=== PATIENT | female | born 1945 | race Caucasian/White ===

== ENCOUNTER 2017-03-21 23:10 | Inpatient (IN) | payer OTHER ==
[~2017-03-21] VITALS: Ht 165.1 cm; Wt 87.0 kg
[~2017-03-21 23:10] MED LIST: ANTIVERT25 MG PO; ASPIRIN325 MG PO; CARVEDILOL12.5 MG PO; JANUVIA25 MG PO; LISINOPRIL5 MG PO; SIMVASTATIN40 MG PO; ZOFRAN4 MG PO
[2017-03-22 00:13] LABS: HEMATOCRIT 38.3 % (36.0-46.0); MCH 30.6 PG (29.0-34.0); MCHC 34.7 G/DL (30.0-36.0); MCV 88.2 FL (83-99); MEAN PLAT.VOLUME 10.7 uM^3 (9.5-12.4); PLATELET COUNT 307 K/uL (156-360); RBC DIS.WIDTH-CV 13.8 % (11.8-14.6); RBC DIS.WIDTH-SD 44.8 % (39-53); RED BLOOD COUNT 4.34 M/uL (3.80-5.20); WHITE BLOOD COUNT 9.6 K/uL (4.1-10.2)
[2017-03-22 00:25] LABS: CHLORIDE 102 mEq/L (99-109); POTASSIUM 4.2 mEq/L (3.7-5.4); SODIUM 136 mEq/L (136-147)
[2017-03-22 00:27] LABS: GLUCOSE 295 mg/dL (70-99)
[2017-03-22 00:28] LABS: ANION GAP 13 MEQ/L (2-14)
[2017-03-22 00:30] LABS: GFR ESTIMATE (CALCULATED) > 59 mL/min/
[2017-03-22 00:31] LABS: UREA NITROGEN (BUN) 12 mg/dL (9-23)
[2017-03-22 00:33] LABS: TROP-I INTERPRETATION NEGATIVE; TROPONIN-I 0.02 ng/mL (0.0-0.30)
[2017-03-22 00:40] LABS: POINT-OF-CARE METER ID UU14100415
[2017-03-22 03:22] LABS: POINT-OF-CARE METER ID UU14100415
[2017-03-22 03:53] VITALS: BP 172/79
[2017-03-22 05:45] LABS: TROP-I INTERPRETATION INDETERMINATE; TROPONIN-I 0.41 ng/mL (0.0-0.30)
[2017-03-22 05:49] LABS: HDL CHOLESTEROL 37 MG/DL (Desirable>=50); LDL CHOLESTEROL 99 mg/dL (Desirable<100); NON-HDL CHOLESTEROL 118 mg/dL (Desirable<160); TOTAL CHOLESTEROL 155 mg/dL (Desirable<200); TRIGLYCERIDES 97 MG/DL (Normal: <150)
[2017-03-22 07:05] LABS: POINT-OF-CARE METER ID UU13113700
[2017-03-22 08:22] LABS: Estimated Average Glucose 194 mg/dL (70-123); HEMOGLOBIN A1c (GLYCOHEMOGLOB) 8.4 % HGB (Below 5.7)
[2017-03-22 08:33] VITALS: BP 180/83
[2017-03-22 11:00] VITALS: BP 155/70
[2017-03-22 12:44] LABS: POINT-OF-CARE METER ID UU14162513
[2017-03-22 13:09] LABS: INTER. NORMALIZED RATIO 1.1; PROTHROMBIN TIME 12.1 SEC (10.2-12.9)
[2017-03-22 13:12] LABS: PTT 38.4 SEC (25-37)
[2017-03-22 13:19] LABS: TROP-I INTERPRETATION POSITIVE; TROPONIN-I 3.52 ng/mL (0.0-0.30)
[2017-03-22 14:55] LABS: POINT-OF-CARE METER ID UU13113696
[2017-03-22 17:46] LABS: POINT-OF-CARE METER ID UU13113819
[2017-03-22 20:23] VITALS: BP 132/62
[2017-03-22 21:09] LABS: POINT-OF-CARE METER ID UU13113781
[2017-03-22 23:34] VITALS: BP 125/58
[2017-03-23 04:40] VITALS: BP 122/62
[2017-03-23 06:14] LABS: ANION GAP 9 MEQ/L (2-14); CHLORIDE 106 MEQ/L (99-109); GFR ESTIMATE (CALCULATED) > 59 mL/min/; GLUCOSE 177 mg/dL (70-99); POTASSIUM 3.9 MEQ/L (3.7-5.4); SAMPLE HEMOLYSIS CHECK 0; SAMPLE ICTERIC CHECK 0; SAMPLE LIPEMIA CHECK 0; SODIUM 138 MEQ/L (136-147); UREA NITROGEN (BUN) 10 mg/dL (9-23)
[2017-03-23 09:05] VITALS: BP 136/71
[2017-03-23] MEDS ORDERED: CARVEDILOL12.5 MG PO (12:42)
[2017-03-23] MEDS ORDERED: LISINOPRIL5 MG PO (12:42)
[2017-03-23] MEDS ORDERED: JANUVIA25 MG PO (12:42)
[2017-03-23] MEDS ORDERED: AMLODIPINE BESYL5 MG PO (12:42)
[2017-03-23] MEDS ORDERED: LOVASTATIN20 MG PO (12:43)
[2017-03-23] MEDS ORDERED: NITROGLYCERIN0.4 MG SL (13:33)
== END 2017-03-23 15:23 | disposition home or self-care (01) | DRG 281 ==
LOC: EME 23:10 → 5WEST 03-22 01:14 → EDOF 03-22 01:14 → ENRESERV 03-22 01:15 → 5WEST 03-22 03:31 → ENRESERV 03-22 14:33 → 5WEST 03-22 14:33 → 4EAST 03-22 15:12 → 5WEST 03-22 15:12 → ENRESERV 03-22 15:15 → 4EAST 03-22 19:36 → ENPENDDIS 03-23 → 4EAST 03-23 15:23
PROVIDERS: Emergency Medicine; Internal Medicine; Internal Medicine Cardiovascular Disease; Physician Assistant Medical; Student in an Organized Health Care Education/Training Program
DX: I21.4 Non-ST elevation (NSTEMI) myocardial infarction (principal); I25.110 Atherosclerotic heart disease of native coronary artery with unstable angina pectoris; I25.82 Chronic total occlusion of coronary artery; I11.0 Hypertensive heart disease with heart failure; I50.30 Unspecified diastolic (congestive) heart failure; E11.65 Type 2 diabetes mellitus with hyperglycemia; E78.1 Pure hyperglyceridemia; E78.5 Hyperlipidemia, unspecified; F32.9 Major depressive disorder, single episode, unspecified; F41.9 Anxiety disorder, unspecified; G43.909 Migraine, unspecified, not intractable, without status migrainosus; H81.10 Benign paroxysmal vertigo, unspecified ear; E66.9 Obesity, unspecified; Z68.30 Body mass index [BMI] 30.0-30.9, adult; Z87.891 Personal history of nicotine dependence; Z79.82 Long term (current) use of aspirin; Z79.84 Long term (current) use of oral hypoglycemic drugs; Z82.49 Family history of ischemic heart disease and other diseases of the circulatory system; Z91.14 Patient's other noncompliance with medication regimen; Z95.5 Presence of coronary angioplasty implant and graft; Z95.1 Presence of aortocoronary bypass graft
CPT/HCPCS: 70450; 70551; 71020; 80048; 80061; 82948; 83036; 83880; 84484; 85027; 85610; 85730; 93005; 93306; 93880; 99281; 99285; C1750; C1760; C1769; C1887; C1894; J0360; J1650; J1815; J2250; J3010; J7030; J7040

== ENCOUNTER 2017-09-01 08:04 | Emergency (ER) | payer OTHER ==
[~2017-09-01] VITALS: Ht 165.1 cm; Wt 78.5 kg
[~2017-09-01 08:04] MED LIST changes: +AMLODIPINE BESYL5 MG PO; +LOVASTATIN20 MG PO; +NITROGLYCERIN0.4 MG SL
[2017-09-01 08:54] LABS: HEMATOCRIT 40.2 % (36.0-46.0); HEMOGLOBIN 14.1 G/DL (11.9-15.5); MCH 30.8 PG (29.0-34.0); MCHC 35.1 G/DL (30.0-36.0); MCV 87.8 FL (83-99); PLATELET COUNT 292 K/uL (156-360); RBC DIS.WIDTH-CV 14.7 % (11.8-14.6); RBC DIS.WIDTH-SD 47.6 % (39-53); RED BLOOD COUNT 4.58 M/uL (3.80-5.20); WHITE BLOOD COUNT 9.1 K/uL (4.1-10.2)
[2017-09-01 09:05] LABS: CHLORIDE 97 mEq/L (99-109); POTASSIUM 4.2 mEq/L (3.7-5.4); SODIUM 131 mEq/L (136-147)
[2017-09-01 09:07] LABS: GLUCOSE 187 mg/dL (70-99)
[2017-09-01 09:11] LABS: CREATININE 0.8 mg/dL (0.6-1.3); GFR ESTIMATE (CALCULATED) > 59 mL/min/; UREA NITROGEN (BUN) 7 mg/dL (9-23)
[2017-09-01 09:15] LABS: TROP-I INTERPRETATION NEGATIVE; TROPONIN-I < 0.01 ng/mL (0.0-0.30)
[2017-09-01 10:55] VITALS: BP 164/86
== END 2017-09-01 10:56 | disposition home or self-care (01) ==
LOC: EME 08:04
PROVIDERS: Emergency Medicine
DX: J10.1 Influenza due to other identified influenza virus with other respiratory manifestations (principal); R53.81 Other malaise; K21.9 Gastro-esophageal reflux disease without esophagitis; F41.9 Anxiety disorder, unspecified; F32.9 Major depressive disorder, single episode, unspecified; I10 Essential (primary) hypertension; E11.9 Type 2 diabetes mellitus without complications; Z95.1 Presence of aortocoronary bypass graft; Z79.82 Long term (current) use of aspirin; Z87.891 Personal history of nicotine dependence
CPT/HCPCS: 71045; 80048; 84484; 85027; 87502; 93005; 99281; 99284